=== PATIENT | female | born 1985 | race Caucasian/White ===

== ENCOUNTER 2017-12-23 12:50 | Outpatient (CLI) | payer OTHER ==
--- NOTE | 2017-12-23 14:38 | ULT ---
OB ULTRASOUND: INDICATION: Assess for size and dates. FINDINGS: There is a 17-week 3-day gestation by ultrasound measurement. Biometry measurements are consistent a s below: BPD: 17 weeks 0 days. HC: 17 weeks 3 days. AC: 18 weeks 1 day. FL: 17 weeks 3 days. HEART RATE: 139. PLACENTA: Anterior. POSITION: Breech. AMNIOTIC FLUID: Within normal range. anatomy evaluated includes intracranial contents, spine, bladder, kidneys, 3-vessel cord, 4-rubens mber heart, stomach, and cord insertion identified. Nose and lips were identified. No anatomic abno rmality identified. IMPRESSION: A single viable intrauterine with gestational age by ultrasound consistent with 17 weeks 3 days. POS: [facility]
== END 2017-12-23 12:51 | disposition home or self-care (01) ==
LOC: ULT 12:50
PROVIDERS: ATTEND Family Medicine
DX: Z34.00 Encounter for supervision of normal first pregnancy, unspecified trimester (principal)
CPT/HCPCS: 76805

== ENCOUNTER 2018-05-12 08:00 | Inpatient (IN) | payer OTHER ==
[2018-05-21 06:04] VITALS: BMI 34.3
[2018-05-21] MEDS ORDERED: Ondansetron HCl/PF 4 MG/2 ML Vial IVP PRN ×3 (06:10→11:51)
[2018-05-21] MEDS ORDERED: Promethazine HCl 25 MG/ML VIAL IM PRN ×2 (06:10→09:02)
[2018-05-21] MEDS ORDERED: CEFAZOLIN/Water 2 GM/20 ML SYRINGE SLOW IVP SCH (06:15)
[2018-05-21] MEDS ORDERED: Lactated Ringer's 1,000 ML IV SCH ×2 (06:15→11:51)
[2018-05-21] MEDS ORDERED: Bicitra 30 ML UDCUP PO SCH (06:15)
[2018-05-21 06:32] LABS: Hemoglobin 11.1 g/dL (12.0-16.0); Mean Corpuscular HGB CONC 34.9 g/dL (32.0-36.0); Mean Corpuscular Hemoglobin 31.4 pg (27.0-31.0); Mean Platelet Volume 10.2 fL (7.4-10.4); Platelet Count 89 thou/uL (130-400); RBC Distribution Width 11.5 % (11.5-14.5); Red Blood Cell (RBC) Count 3.55 mill/uL (4.20-5.40)
[2018-05-21 07:07] LABS: HBSAg Index 0.22 S/CO (0-0.99); Hep B Surf Ag Non-Reactive S/CO (NonReactive)
[2018-05-21 07:10] LABS: Syphilis Antibody Nonreactive (Nonreactive); Syphilis Antibody Index 0.04 S/CO (<1.00 Non-Reactive)
[2018-05-21] MEDS ORDERED: Morphine PF 1 MG/ML SYR ONE (07:23)
[2018-05-21] MEDS ORDERED: Ondansetron HCl/PF 4 MG/2 ML Vial ONE ×2 (07:24→07:30)
[2018-05-21] MEDS ORDERED: PHENYLEPHRINE-NS 100 MCG/ML 10 ML SYRINGE ONE (07:24)
[2018-05-21] MEDS ORDERED: Bupivacaine 0.75% W/DEXTROSE 8.25% 2 ML AMP ONE (07:24)
[2018-05-21] MEDS ORDERED: ePHEDrine/0.9% NaCl/PF SYRINGE 50 mg/10 ml ONE (07:24)
[2018-05-21] MEDS ORDERED: Lidocaine 2% PF 5 ML VIAL ONE (07:24)
[2018-05-21] MEDS ORDERED: Oxytocin 10 UNITS/ML VIAL ONE ×2 (07:25→07:47)
[2018-05-21] MEDS ORDERED: OXYTOCIN ONE (07:49)
[2018-05-21] MEDS ORDERED: NS ONE (07:49)
[2018-05-21] MEDS ORDERED: Ketorolac Tromethamine 30 MG/ML VIAL ONE (08:46)
[2018-05-21 08:59] LABS: Actual Bicarbonate (HCO3a) 24.9 mEq/L (22-28)
[2018-05-21] MEDS ORDERED: Naloxone HCl 0.4 mg/ml Vial IVP PRN ×2 (09:02)
[2018-05-21] MEDS ORDERED: Promethazine HCl 25 MG SUPP PR PRN (09:02)
[2018-05-21] MEDS ORDERED: diphenhydrAMINE 50 MG/ML VIAL IVP PRN (09:02)
[2018-05-21] MEDS ORDERED: HYDROmorphone 2 MG/ML VIAL SLOW IVP PRN (09:02)
[2018-05-21] MEDS ORDERED: Eucerin (Mineral Oil/Petrolatum,White) 30 gm Jar TOP PRN (09:02)
[2018-05-21] MEDS ORDERED: Meperidine HCl/PF 25 MG/ML VIAL SLOW IVP PRN (09:02)
[2018-05-21] MEDS ORDERED: Ketorolac Tromethamine 30 MG/ML VIAL IVP SCH (09:15)
[2018-05-21] MEDS ORDERED: Communication Order-Pharmacy FS SCH (09:15)
--- NOTE | 2018-05-21 10:40 | OP ---
DATE OF PROCEDURE: 05/21/2018 PREOPERATIVE DIAGNOSIS: Term intrauterine with breech presentation. POSTOPERATIVE DIAGNOSES: Term intrauterine with breech presentation, status post delivery ANESTHETIC: Spinal anesthetic. COMPLICATIONS: No complications. SURGEON: Giovanna Moore M.D. INBOUND SALES ADVISOR: Dr. Mahoney and Dr. Norris Moore PROCEDURE IN DETAIL: After adequate spinal anesthetic, the patient was placed in supine position. A wedge was placed under her right flank. Harley catheter was placed. The abdomen was prepped and dr crystaled in usual sterile technique. A Pfannenstiel incision was made on the uterus. Subcutaneous tissu e opened with sharp dissection, fascia with sharp dissection. Peritoneum opened with sharp and blunt dissection. A large Kemar O retractor was placed into the abdomen. A gravid uterus was identified . A bladder flap was incised inferiorly and a low transverse incision was made on the uterus. Membr anes were ruptured. Clear fluid was encountered and a viable male was delivered from livier br eech presentation. Cord was clamped and cut. Nose and mouth had been bulb suctioned, the was handed to care of the neonatology team. A section of cord was excised for cord gases and cord blood was obtained. The placenta was then delivered manually and appeared intact. A wet lap was used to wipe clean the uterus. The cervix was dilated and that ring forceps was then taken external to the a bdominal field. The hysterotomy edges were grasped with ring forceps and hysterotomy was then closed using 0 Monocryl. There was good hemostasis. No further bleeding. No bleeding from the peritoneal edges or the bladder flap. The Kemar O retractor was then removed and the peritoneum was then clos ed in continuous fashion using 2-0 Vicryl. The fascia was then closed in continuous fashion using 0 Vicryl. The sponge and instrument counts were correct. The subcutaneous tissue was reapproximated w ith 2-0 plain running suture, and the skin was closed using maria teresa. The patient tolerated the proce dure well to go to the recovery room in good condition. Noted the baby is a viable male , Apga rs 4 at 1 minute, 9 at 5 minutes, weight is pending at this time. QBL is pending at this time. ESTIMATED BLOOD LOSS: Approximately 900 mL.
[2018-05-21] MEDS ORDERED: Ferrous Sulfate 325 MG TAB PO SCH ×2 (11:51→12:30)
[2018-05-21] MEDS ORDERED: HYDROcodone/Acetaminophen 5/325 mg Tablet PO PRN (11:51)
[2018-05-21] MEDS ORDERED: Prenatal Vitamin 1 TAB PO SCH ×2 (11:51→12:30)
[2018-05-21] MEDS ORDERED: Lanolin Ointment 7 GM TUBE TOP PRN (11:51)
[2018-05-21] MEDS ORDERED: Acetaminophen 325 MG TAB PO PRN (11:51)
[2018-05-21] MEDS ORDERED: diphenhydrAMINE 25 MG CAP PO PRN (11:51)
[2018-05-21] MEDS ORDERED: Bisacodyl 10 MG SUPP PR PRN (11:51)
[2018-05-21] MEDS ORDERED: Docusate Calcium (SURFAK) 240 MG CAP PO SCH ×2 (11:51→12:30)
[2018-05-21] MEDS ORDERED: Acetaminophen 1,000 MG in Premix Bag 1 BAG IVPB PRN (12:21)
[2018-05-21] MEDS ORDERED: Ibuprofen 800 MG TAB PO SCH (14:00)
[2018-05-21] MEDS ORDERED: Ketorolac Tromethamine 30 MG/ML VIAL IVP PRN (15:32)
[2018-05-21] MEDS ORDERED: Naloxone HCl 0.4 mg/ml Vial IV PRN (15:33)
[2018-05-21] MEDS ORDERED: Ondansetron HCl/PF 4 MG/2 ML Vial SLOW IVP PRN (15:34)
[2018-05-21] MEDS ORDERED: Sodium Chloride 0.9% 10 ML ONE (17:46)
[2018-05-21] MEDS: Simethicone Chewable 80 MG TAB PO PRN (21:21)
[2018-05-21] MEDS: Docusate Calcium (SURFAK) 240 MG CAP PO SCH (21:21)
[2018-05-21] MEDS: Acetaminophen/Codeine 30-300mg Tablet PO PRN (22:17)
[2018-05-22] MEDS: Acetaminophen/Codeine 30-300mg Tablet PO PRN ×3 (02:21→21:43)
[2018-05-22] MEDS: Ferrous Sulfate 325 MG TAB PO SCH ×3 (03:03→21:44)
--- NOTE | 2018-05-22 06:34 | PDOC.PP ---
Post Progress Note Post Day #: 1 Subjective: This morning patient states she slept well overnight. She is having minimal pain , well-controlled with pain medications. Notes she would like to try ibuprofen rather than tylenol #3. No N/V. States she has had a little more bleeding than a regular menses, but it is decreasing. PO intake tolerated: yes Ambulation: yes Vital Signs (12 hours) Temp Pulse Resp BP BP 05/22/18 05:20 98.0 F 82 18 137/88 05/22/18 02:00 20 05/21/18 23:30 98.2 F 87 18 124/74 05/21/18 22:00 18 05/21/18 20:00 98.4 F 89 18 130/74 Weight Weight 96.615 kg - Physical Examination General: NAD Cardiovascular: no m/r/g, RRR Respiratory: clear to auscultation bilaterally, non-labored breathing Abdominal: + bowel sounds, appropriately TTP Fundus firm & at: 2cm below uterus Skin: CS incision dry & intact, no rash Neurological: no gross focal deficits Psychiatric: A&Ox3 Result Diagrams: 05/21/18 06:15 Additional Labs: Post Labs Blood Type A POSITIVE 05/21/18 06:15 Hep Bs Antigen Non-Reactive S/CO (NonReactive) 05/21/18 06:15 (1) delivery delivered Code(s): O82 - ENCOUNTER FOR DELIVERY WITHOUT INDICATION Status: Acute - Assessment/Plan #PP day 1 - pain well-controlled, patient requests ibuprofen rather than tylenol - lab drawn this AM, f/u on Hgb - encouraged ambulation - tolerating PO without difficulty - , consult ordered - likely d/c tomorrow at 48 hours pending clinical course
[2018-05-22] MEDS ORDERED: Ibuprofen 800 MG TAB PO SCH (06:45)
[2018-05-22 07:12] LABS: Hemoglobin 9.9 g/dL (12.0-16.0); Mean Corpuscular HGB CONC 35.2 g/dL (32.0-36.0); Mean Corpuscular Hemoglobin 32.4 pg (27.0-31.0); Mean Corpuscular Volume 91.9 fL (78.0-98.0); Mean Platelet Volume 9.6 fL (7.4-10.4); Platelet Count 83 thou/uL (130-400); RBC Distribution Width 11.6 % (11.5-14.5); Red Blood Cell (RBC) Count 3.07 mill/uL (4.20-5.40); White Blood Cell (WBC) Count 8.9 thou/uL (4.8-10.8)
[2018-05-22] MEDS: Docusate Calcium (SURFAK) 240 MG CAP PO SCH ×2 (08:30→21:44)
[2018-05-22] MEDS: Ibuprofen 800 MG TAB PO SCH ×4 (08:31→21:44)
[2018-05-22] MEDS: Prenatal Vitamin 1 TAB PO SCH (08:32)
[2018-05-23] MEDS: Acetaminophen/Codeine 30-300mg Tablet PO PRN ×3 (04:13→21:46)
[2018-05-23] MEDS: Ibuprofen 800 MG TAB PO SCH ×3 (05:19→21:43)
[2018-05-23 06:37] LABS: Hemoglobin 9.8 g/dL (12.0-16.0); Mean Corpuscular HGB CONC 35.1 g/dL (32.0-36.0); Mean Corpuscular Hemoglobin 32.4 pg (27.0-31.0); Mean Corpuscular Volume 92.3 fL (78.0-98.0); Mean Platelet Volume 8.7 fL (7.4-10.4); Platelet Count 103 thou/uL (130-400); RBC Distribution Width 11.8 % (11.5-14.5); Red Blood Cell (RBC) Count 3.03 mill/uL (4.20-5.40)
[2018-05-23] MEDS ORDERED: Triple Antibiotic Ointment 30 GM TUBE TOP PRN (09:16)
[2018-05-23] MEDS: Prenatal Vitamin 1 TAB PO SCH (09:34)
[2018-05-23] MEDS: Docusate Calcium (SURFAK) 240 MG CAP PO SCH ×2 (09:34→21:43)
[2018-05-23] MEDS: Ferrous Sulfate 325 MG TAB PO SCH ×2 (09:34→21:43)
[2018-05-24] MEDS: Ibuprofen 800 MG TAB PO SCH (06:27)
[2018-05-24] MEDS: Docusate Calcium (SURFAK) 240 MG CAP PO SCH (09:23)
[2018-05-24] MEDS: Prenatal Vitamin 1 TAB PO SCH (09:24)
[2018-05-24] MEDS: Ferrous Sulfate 325 MG TAB PO SCH (09:24)
[2018-05-24] MEDS: Simethicone Chewable 80 MG TAB PO PRN (09:24)
[2018-05-24 10:41] VITALS: BP 132/80; TEMP 97.4
== END 2018-05-24 12:10 | disposition home or self-care (01) | DRG 766 ==
LOC: EDSTATUS 08:00 → L&D 05-21 05:27 → 3SW 05-21 11:53
PROVIDERS: ADMIT Family Medicine; ATTEND Family Medicine
PROC: 10D00Z1 Extraction of Products of Conception, Low, Open Approach (ICD-10-PCS; principal; 2018-05-21)
DX: O32.1XX0 Maternal care for breech presentation, not applicable or unspecified (principal); Z3A.39 39 weeks gestation of pregnancy; Z37.0 Single live birth; Z88.2 Allergy status to sulfonamides
CPT/HCPCS: 36415; 51702; 82805; 85027; 86780; 86850; 86900; 86901; 87340; A4216; J0131; J1885; J2001; J2274; J2405; J2590; J3490

== ENCOUNTER 2019-12-08 08:13 | Outpatient (CLI) | payer OTHER ==
--- NOTE | 2019-12-08 09:18 | RAD ---
LEFT FOOT 3 VIEWS: HISTORY: Foot pain. FINDINGS: There is a nondisplaced more transversely oriented fracture involving the base of the proximal phalan x of the little toe. I do not see an intraarticular component to this fracture. IMPRESSION: Nondisplaced proximal phalanx little toe fracture. POS: [facility]
== END 2019-12-08 08:14 | disposition home or self-care (01) ==
LOC: BICRAD 08:13
PROVIDERS: ATTEND Family Medicine
DX: M79.672 Pain in left foot (principal); S92.515A Nondisplaced fracture of proximal phalanx of left lesser toe(s), initial encounter for closed fracture

== ENCOUNTER 2019-12-10 08:42 | Outpatient (CLI) | payer OTHER ==
--- NOTE | 2019-12-10 10:39 | ULT ---
RIGHT BREAST ULTRASOUND: HISTORY: A 34-year-old female with a suggestion of mass in the right breast. FINDINGS/IMPRESSION: Sonographic evaluation of the region of palpable concern involving the 11, 12, and 1 o'clock position s of the right breast demonstrate no abnormality. Further evaluation (including biopsy) should be based on clinical findings/suspicion. POS: [facility]
== END 2019-12-10 08:43 | disposition home or self-care (01) ==
LOC: BICULT 08:42
PROVIDERS: ATTEND Student in an Organized Health Care Education/Training Program
DX: N63.10 Unspecified lump in the right breast, unspecified quadrant (principal)

== ENCOUNTER 2020-06-30 15:25 | Outpatient (CLI) | payer OTHER ==
[2020-07-01 12:32] LABS: SARS-CoV-2 MS2 Positive; SARS-CoV-2 N Gene Negative; SARS-CoV-2 S Gene Negative; SARS-CoV-2 by NAA Not Detected (NotDetected); SARS-CoV-2 orf1ab Negative
== END 2020-06-30 15:26 | disposition home or self-care (01) ==
LOC: LABSCS 15:25
PROVIDERS: ATTEND Advanced Practice Midwife
DX: Z20.828 Contact with and (suspected) exposure to other viral communicable diseases (principal)
CPT/HCPCS: 87635; U0003

== ENCOUNTER 2020-07-04 10:51 | Inpatient (IN) | payer OTHER ==
[2020-07-04 11:17] VITALS: BMI 35.0
[2020-07-04 11:51] LABS: Amnisure Test RUPTURE DETECTED (No Rupture)
[2020-07-04 11:52] LABS: Amnisure Internal Control QC ACCEPTABLE (ACCEPTABLE)
[2020-07-04] MEDS ORDERED: Promethazine HCl 25 MG/ML VIAL IM PRN ×2 (12:42→17:25)
[2020-07-04] MEDS ORDERED: Ondansetron PF 4 MG/2 ML Vial IVP PRN ×3 (12:42→19:30)
[2020-07-04] MEDS ORDERED: Bicitra 30 ML UDCUP PO SCH (12:45)
[2020-07-04] MEDS ORDERED: CEFAZOLIN 2 GM in Premix Bag 1 BAG IVPB ONE (12:45)
[2020-07-04 13:09] LABS: Hemoglobin 12.3 g/dL (12.0-16.0); Mean Corpuscular HGB CONC 35.4 g/dL (32.0-36.0); Mean Corpuscular Hemoglobin 31.9 pg (27.0-31.0); Mean Corpuscular Volume 90.2 fL (78.0-98.0); Mean Platelet Volume 11.1 fL (7.4-10.4); Platelet Count 128 thou/uL (130-400); RBC Distribution Width 11.9 % (11.5-14.5); Red Blood Cell (RBC) Count 3.87 mill/uL (4.20-5.40); White Blood Cell (WBC) Count 6.1 thou/uL (4.8-10.8)
[2020-07-04 13:48] LABS: HBSAg Index 0.17 S/CO (0-0.99); Hep B Surf Ag Non-Reactive S/CO (NonReactive)
[2020-07-04 13:49] LABS: Syphilis Antibody Nonreactive (Nonreactive); Syphilis Antibody Index 0.03 S/CO (<1.00 Non-Reactive)
[2020-07-04] MEDS ORDERED: Lactated Ringer's 1,000 ML IV SCH (14:45)
[2020-07-04] MEDS ORDERED: Ondansetron PF 4 MG/2 ML Vial ONE (15:05)
[2020-07-04] MEDS ORDERED: PHENYLEPHRINE-NS 100 MCG/ML 10 ML SYRINGE ONE (15:05)
[2020-07-04] MEDS ORDERED: Ketorolac Tromethamine 30 MG/ML VIAL ONE (15:05)
[2020-07-04] MEDS ORDERED: Oxytocin 10 UNITS/ML VIAL ONE ×2 (15:05→16:35)
[2020-07-04] MEDS ORDERED: ePHEDrine 50 MG/ML VIAL ONE (15:05)
--- NOTE | 2020-07-04 15:59 | PDOC.LDHP ---
Labor and Delivery H&P Chief complaint: loss of fluid HPI: Patient reports a loss of fluid with some slight red tint this morning at 9am. Current gestational age (weeks): 41 (3) Due date: 06/24/20 Grav: 2 Para: 1 OB History Details: PCS for breech Current complications: other Abnormal US findings: No Current medications: pre- vitamins Previous surgical history: low tranverse CS Allergies/Adverse Reactions: Allergies Allergy/AdvReac Type Severity Reaction Status Date / Time sulfamethoxazole Allergy Hives Verified 05/21/18 06:26 [From Bactrim] trimethoprim [From Bactrim] Allergy Hives Verified 05/21/18 06:26 Social history: none - Physical Exam Vital signs reviewed and normal: yes General: breathing through contractions Heart: RRR Lungs: nonlabored breathing Abdomen: gravid FHT: category 1 - Vaginal Exam cm dilated: 0 Effacement: 0% Station: -3 - OB Labs Blood type: O RH: positive Antibody Screen: negative HIV: negative RPR: negative HEPSAg: negative 1 hour GCT: negative GBS: negative Urine drug screen: negative Rubella: immune - Assessment L&D Assessment: term rupture in membranes - Plan Plan: admit to L&D, to OR for section, anesthesia consult for pain management
[2020-07-04] MEDS ORDERED: Dexamethasone 4 mg/ml Vial ONE (16:26)
[2020-07-04] MEDS ORDERED: diphenhydrAMINE 50 MG/ML VIAL IVP PRN (17:25)
[2020-07-04] MEDS ORDERED: Naloxone HCl 0.4 mg/ml Vial IV PRN (17:25)
[2020-07-04] MEDS ORDERED: Promethazine HCl 25 MG SUPP PR PRN (17:25)
[2020-07-04] MEDS ORDERED: Naloxone HCl 0.4 mg/ml Vial IVP PRN ×2 (17:25)
[2020-07-04] MEDS ORDERED: Communication Order-Pharmacy FS SCH (17:30)
--- NOTE | 2020-07-04 19:03 | PDOC.OPDEL ---
OB Operative/Delivery Note Delivery Dr/Surgeon: Lester Assist: Light Pre-Delivery Diagnosis: ruptured membrane Procedure/Post Delivery Dx: repeat low transverse CS Weeks gestation: 41 Anesthesia: spinal - Findings A Sex: female ("Maria Guadalupe") Weight: 8 lb 13.59 oz - 1 min: 8 - 5 min: 9 - Additional Findings/Plan Placenta delivered: spontaneous findings: low transverse hysterotomy without extension, normal uterus, normal tubes Estimated blood loss: 416 Post delivery plan: routine recovery
[2020-07-04] MEDS ORDERED: Lanolin Ointment 7 GM TUBE TOP PRN (19:30)
[2020-07-04] MEDS ORDERED: NS / Oxytocin 40 units/1000ml 1,000 ML IV SCH (19:30)
[2020-07-04] MEDS ORDERED: Simethicone Chewable 80 MG TAB PO PRN (19:30)
[2020-07-04] MEDS ORDERED: hydrALAZINE 20 MG/ML VIAL SLOW IVP PRN (19:30)
[2020-07-04] MEDS ORDERED: Bisacodyl 10 MG SUPP PR PRN (19:30)
[2020-07-04] MEDS ORDERED: HYDROcodone/Acetaminophen 5/325 mg Tablet PO PRN (19:30)
--- NOTE | 2020-07-04 21:17 | OP ---
DATE OF PROCEDURE: 07/04/2020 PREOPERATIVE DIAGNOSES: 1. Forty-one week intrauterine . 2. Prior x1. 3. Premature rupture of membranes. POSTOPERATIVE DIAGNOSES: 1. Forty-one week intrauterine . 2. Prior x1. 3. Premature rupture of membranes. PROCEDURE PERFORMED: Repeat low transverse section via Pfannenstiel. [facility] CONSULTANT: Karolyn Bach CNM ANESTHESIA: Spinal. COMPLICATIONS: None. BLOOD LOSS: 416ml FINDINGS: Vigorous female in cephalic presentation. Apgars 8 and 9. weight 4014g. Moderate scarring of the subcutaneous tissue through to the fascia, very thin lower uterine segment. Normal uterus, tubes, and ovaries otherwise. DESCRIPTION OF PROCEDURE: The patient was taken to the operating room, where spinal anesthesia was obtained without difficulty. She was prepared and draped in the normal sterile fashion in a dorsal supine position with leftward tilt. A Pfannenstiel skin incision was made with a scalpel and carried down to the underlying layer of fascia. The fascia was incised in the midline and extended laterally with the scalpel. The fascia was then grasped with Sánchez clamps and tented up, and the rectus muscles were dissected off sharply. The peritoneum was identified and entered bluntly. The incision was then extended superiorly and inferiorly with good visualization of the bladder. An Kemar O retractor was placed in the abdomen. The lower uterine segment was incised in a transverse fashion with the scalpel. The incision was extended with cephalocaudal traction. The 's head was delivered atraumatically. The nose and mouth were suctioned with bulb suction. The cord was clamped and cut. The infant was handed off to the waiting nursery team. The placenta was delivered spontaneously, and the uterus was cleared of all clots and debris. The uterine incision was repaired in a running locked fashion with one Monocryl with good hemostasis. The abdomen was copiously irrigated, and again good hemostasis was noted. The Kemar O retractor was removed from the abdomen, and Seprafilm was placed in the anterior portion of the uterus. The fascia was closed in a running fashion with 0 PDS. The subcutaneous tissue was reapproximated with plain gut, and the skin was closed in a subcuticular fashion with 4-0 Monocryl. The patient tolerated the procedure well. Sponge, lap, and needle counts were correct x2. The patient was taken to recovery room in stable condition. Job ID: [id number] MTDD
[2020-07-04] MEDS ORDERED: Sodium Chloride 0.9% 10 ML ONE (23:03)
[2020-07-04] MEDS: Ketorolac Tromethamine 30 MG/ML VIAL IVP PRN (23:06)
[2020-07-05] MEDS: Ketorolac Tromethamine 30 MG/ML VIAL IVP PRN (05:14)
[2020-07-05] MEDS ORDERED: HYDROcodone/Acetaminophen 5/325 mg Tablet PO PRN (05:30)
[2020-07-05 07:39] LABS: Hemoglobin 11.2 g/dL (12.0-16.0); Mean Corpuscular HGB CONC 34.1 g/dL (32.0-36.0); Mean Corpuscular Hemoglobin 31.7 pg (27.0-31.0); Mean Platelet Volume 10.2 fL (7.4-10.4); Platelet Count 114 thou/uL (130-400); RBC Distribution Width 11.8 % (11.5-14.5); Red Blood Cell (RBC) Count 3.53 mill/uL (4.20-5.40); White Blood Cell (WBC) Count 8.8 thou/uL (4.8-10.8)
--- NOTE | 2020-07-05 07:43 | PDOC.PP ---
Post Progress Note Post Day #: 1 Subjective: Doing well. Pain well controlled, no complaints. Has not ambulated yet. Harley in place. PO intake tolerated: yes Ambulation: no Vital Signs (12 hours) Temp Pulse Resp BP Pulse Ox 07/05/20 05:05 97.8 F 68 14 132/78 07/04/20 23:30 97.8 F 62 16 132/76 07/04/20 21:45 98.4 F 73 15 131/74 07/04/20 20:45 98.7 F 71 16 141/88 H 07/04/20 19:45 98.2 F 55 L 16 144/73 H 96 Weight Weight 217 lb - Physical Examination General: NAD Respiratory: non-labored breathing Neurological: no gross focal deficits Psychiatric: A&Ox3, normal affect Result Diagrams: 07/05/20 07:07 Additional Labs: Post Labs Hep Bs Antigen Non-Reactive S/CO (NonReactive) 07/04/20 12:10 Blood Type A POSITIVE 07/04/20 12:10 (1) delivery delivered Code(s): O82 - ENCOUNTER FOR DELIVERY WITHOUT INDICATION Status: Acute - Assessment/Plan Continue routine postop day 1 management. Anticipate d/c tomorrow.
[2020-07-05] MEDS ORDERED: Adacel (T-DAP) 0.5 ML SYRINGE IM ONE (09:00)
[2020-07-05] MEDS: Prenatal Vitamin 1 TAB PO SCH (10:06)
[2020-07-05] MEDS: Ibuprofen 800 MG TAB PO SCH ×2 (14:49→21:45)
[2020-07-06] MEDS: Ibuprofen 800 MG TAB PO SCH (05:57)
[2020-07-06] MEDS: Prenatal Vitamin 1 TAB PO SCH (08:23)
[2020-07-06 12:02] VITALS: BP 137/77; TEMP 98.2
== END 2020-07-06 12:00 | disposition home or self-care (01) | DRG 788 ==
LOC: L&D/OP 10:51 → L&D-LIB 12:42 → 3SW 20:22
PROVIDERS: ADMIT Obstetrics & Gynecology; ATTEND Obstetrics & Gynecology
PROC: 10D00Z1 Extraction of Products of Conception, Low, Open Approach (ICD-10-PCS; principal; 2020-07-04)
DX: O34.211 Maternal care for low transverse scar from previous cesarean delivery (principal); Z3A.41 41 weeks gestation of pregnancy; Z37.0 Single live birth; Z20.828 Contact with and (suspected) exposure to other viral communicable diseases; Z88.1 Allergy status to other antibiotic agents; Z88.2 Allergy status to sulfonamides
CPT/HCPCS: 36415; 51702; 84112; 85027; 86780; 86850; 86900; 86901; 87340; J0690; J1100; J1885; J2270; J2405; J3490